=== PATIENT | male | born 1995 ===

== ENCOUNTER → 2019-06-12 | Outpatient (CLI) | payer OTHER | LOC: LAB 17:55 → LAB SHORT 17:55 | DX: R23.8 Other skin changes (principal) | CPT/HCPCS: 87529 ==

== ENCOUNTER → 2019-08-06 | Outpatient (CLI) | payer OTHER | LOC: LAB 14:45 → LAB SHORT 14:45 | DX: R21 Rash and other nonspecific skin eruption (principal) | CPT/HCPCS: 87070; 87147; 87205; 87529 ==

== ENCOUNTER → 2020-05-29 | Outpatient (CLI) | payer OTHER ==
[2020-06-03 09:09] LABS: CHLAMYDIA BY NAA Negative (Negative); GONOCOCCUS BY NAA Negative (Negative); TRICH VAG BY NAA Negative (Negative)
== END | disposition home or self-care (01) ==
LOC: LAB EV 14:12 → LAB SHORT 14:12
PROVIDERS: Physician Assistant
DX: Z20.9 Contact with and (suspected) exposure to unspecified communicable disease (principal)
CPT/HCPCS: 87491; 87529; 87591; 87661